=== PATIENT | male | born 1995 | race Caucasian/White ===

== ENCOUNTER 2020-02-12 16:20 | Emergency (ER) | payer OTHER, SELFPAY ==
[~2020-02-12 16:20] MED LIST: Iopamidol 370 76% 100 ML VIAL ONE
[2020-02-12 17:29] LABS: #Basophils 0.1 thou/uL (0.0-0.2); #Eosinphils 0.1 thou/uL (0.0-0.7); #Lymphocytes 1.6 thou/uL (1.20-3.40); #Neutrophils 6.9 thou/uL (1.40-6.50); %Basophils 1.4 % (0.0-1.0); %Eosinophils 1.3 % (0.0-10.0); %Lymphocytes 16.4 % (21.0-51.0); %Monocytes 10.1 % (0.0-10.0); %Neutrophils 70.8 % (42.0-75.0); Mean Corpuscular HGB CONC 32.9 g/dL (32.0-36.0); Mean Corpuscular Hemoglobin 29.8 pg (27.0-31.0); Mean Corpuscular Volume 90.5 fL (78.0-98.0); Mean Platelet Volume 8.5 fL (7.4-10.4); Platelet Count 248 thou/uL (130-400); RBC Distribution Width 11.6 % (11.5-14.5); White Blood Cell (WBC) Count 9.7 thou/uL (4.8-10.8)
[2020-02-12 17:45] LABS: ALT (SGPT) 20 U/L (8-55); AST (SGOT) 14 U/L (5-34); Albumin 4.8 g/dL (3.5-5.0); Alkaline Phosphatase 112 U/L (40-110); Anion Gap 16 mmol/L (10-20); BUN (Urea Nitrogen) 9 mg/dL (8.9-20.6); Bilirubin, Total 0.4 mg/dL (0.2-1.2); Calc. Creatinine Clearance 0 mL/min (70-130); Calcium 9.7 mg/dL (7.8-10.44); Carbon Dioxide 26 mmol/L (22-29); Chloride 101 mmol/L (98-107); Estimated GFR-MDRD Greater than 90; Globulin 2.7 g/dL (2.4-3.5); Glucose 79 mg/dL (70-105); Protein, Total 7.5 g/dL (6.0-8.3); Sodium 139 mmol/L (136-145)
--- NOTE | 2020-02-12 18:23 | CT ---
CT of theface: 02/12/2020 COMPARISON:None available HISTORY:Clinical concern for a soft tissue abscess, pain, soft tissue swelling of the face TECHNIQUE: Serial axial CT imaging at2.5 mm intervals from theaxial level of the cricoid cartilage th rough the axial level of the frontal sinuses with IV contrast. Coronal and sagittal reformatted imaging obtained Findings:The frontal sinuses, maxillary sinuses, ethmoid air cells, sphenoid sinuses, and partially i ubaldo mastoid air cells appear well-aerated. The nasal bones, zygomatic arches, and the pterygoid plates appear intact. Neither temporomandibular joint appears dislocated. There is no evidence for a mandibular fracture. T here are dental caries involving the posterior two left mandibular teeth. There is a prominent periapical abscess as evidenced by lucency at the root of the lateral right maxi llary incisor. There is anterior cortical discontinuity consistent with cortical breakthrough, best seen on axial image 30. There is prominent soft tissue swelling anterior to this with a small gingiva l based abscess measuring 1 cm in transverse dimension and 5 mm in AP dimension, best seen on axial image 31 sagittal image 41 and coronal image 21. There is extensive associated soft tissue swelling i nvolving the soft tissues anterior to the right maxillary sinus, the right maxilla, in the right mandible with subcutaneous fat stranding and skin thickening. Soft tissue swelling extends into the periorbital region on the right, especially medially. Vascular structures of the face and partially visualized neck appear patent. No acute osseous abnorma lity seen. IMPRESSION: Prominent periapical abscess involving the right maxillary lateral incisor with a gingiva l based abscess secondary to cortical breakthrough as detailed above. There is extensive associated soft tissue swelling, skin thickening, and fat stranding consistent with superimposed cellulitis on t he basis of an odontogenic infection.
[2020-02-12] MEDS ORDERED: Sodium Chloride 0.9% 250 ML 250 ML ONE (18:59)
[2020-02-12] MEDS ORDERED: Sodium Chloride 0.9% 2,000 ML ONE (18:59)
[2020-02-12] MEDS ORDERED: metroNIDAZOLE 500 MG/100 ML BAG ONE (18:59)
[2020-02-12] MEDS ORDERED: Dextrose 5 %-0.45 % NaCl 1,000 ML ONE (19:42)
[2020-02-12] MEDS ORDERED: Sodium Chloride 0.9% 250 ML 500 ML ONE (19:44)
[2020-02-12] MEDS ORDERED: Vancomycin HCl 750 MG VIAL ONE (19:44)
== END 2020-02-12 20:17 | disposition short-term general hospital (02) ==
LOC: MADERS 16:20
DX: K04.7 Periapical abscess without sinus (principal); K12.2 Cellulitis and abscess of mouth; F90.9 Attention-deficit hyperactivity disorder, unspecified type; R45.4 Irritability and anger
CPT/HCPCS: 70487; 80053; 83605; 85025; 87040; 96365; 96375; J3370; J7042; J7050; Q9967

== ENCOUNTER 2020-12-12 15:30 | Emergency (ER) | payer OTHER, SELFPAY ==
[2020-12-13 13:38] LABS: SARS-CoV-2 PCR by NAA Not Detected (NotDetected)
== END 2020-12-12 17:17 | disposition home or self-care (01) ==
LOC: MADERS 15:30
DX: B34.9 Viral infection, unspecified (principal); R06.02 Shortness of breath; R07.81 Pleurodynia; Z20.822 Contact with and (suspected) exposure to COVID-19; F17.220 Nicotine dependence, chewing tobacco, uncomplicated
CPT/HCPCS: 71046; 93005; U0003; U0005

== ENCOUNTER 2022-11-12 17:28 | Emergency (ER) | payer OTHER, SELFPAY ==
[2022-11-12] MEDS ORDERED: Ipratropium/Albuterol 3 ML NEB ONE (18:43)
[2022-11-12] MEDS ORDERED: Dexamethasone 4 MG TAB ONE (18:53)
[2022-11-12] MEDS ORDERED: predniSONE 10 MG TAB ONE (18:58)
== END 2022-11-12 19:02 | disposition home or self-care (01) ==
LOC: MADERS 17:28
DX: J45.901 Unspecified asthma with (acute) exacerbation (principal); F17.220 Nicotine dependence, chewing tobacco, uncomplicated
CPT/HCPCS: 71045; J7512; J7620; J8540

== ENCOUNTER 2023-05-07 14:04 | Emergency (ER) | payer SELFPAY ==
[2023-05-07 15:43] LABS: #Basophils 0.1 thou/uL (0.0-0.2); #Eosinphils 0.1 thou/uL (0.0-0.7); #Lymphocytes 1.7 thou/uL (1.20-3.40); #Monocytes 0.6 thou/uL (0.11-0.59); #Neutrophils 4.8 thou/uL (1.40-6.50); %Basophils 0.9 % (0.0-1.0); %Lymphocytes 22.9 % (21.0-51.0); %Monocytes 8.7 % (0.0-10.0); %Neutrophils 65.6 % (42.0-75.0); Hematocrit 47.7 % (42.0-52.0); Hemoglobin 15.9 g/dL (14.0-18.0); Mean Corpuscular HGB CONC 33.3 g/dL (32.0-36.0); Mean Corpuscular Hemoglobin 29.9 pg (27.0-31.0); Mean Corpuscular Volume 89.7 fl (78.0-98.0); Mean Platelet Volume 8.2 fL (7.4-10.4); Platelet Count 299 10x3/uL (130-400); RBC Distribution Width 11.6 % (11.5-14.5); Red Blood Cell (RBC) Count 5.32 mill/uL (4.70-6.10); White Blood Cell (WBC) Count 7.3 10x3/uL (4.8-10.8)
[2023-05-07] MEDS ORDERED: Ketorolac Tromethamine 30 MG (1 mL) VIAL ONE (15:43)
[2023-05-07] MEDS ORDERED: Ondansetron PF 4 MG/2 ML Vial ONE (15:43)
[2023-05-07] MEDS ORDERED: Lactated Ringer's 1,000 ML ONE (15:43)
[2023-05-07 15:50] LABS: INR-International Normal Ratio 0.9
[2023-05-07 15:51] LABS: PTT 28.3 sec (22.9-36.1)
[2023-05-07 15:58] LABS: ALT (SGPT) 42 U/L (8-55); AST (SGOT) 21 U/L (5-34); Albumin 4.8 g/dL (3.5-5.0); Alkaline Phosphatase 95 U/L (40-110); Anion Gap 16 mmol/L (10-20); BUN (Urea Nitrogen) 8 mg/dL (8.9-20.6); Bilirubin, Total 0.4 mg/dL (0.2-1.2); CK (CPK) 73 U/L (30-200); Calc. Creatinine Clearance 0 mL/min (70-130); Calcium 10.4 mg/dL (7.8-10.44); Carbon Dioxide 26 mmol/L (22-29); Chloride 101 mmol/L (98-107); Estimated GFR 132; Globulin 2.5 g/dL (2.4-3.5); Glucose 89 mg/dL (70-105); Protein, Total 7.3 g/dL (6.0-8.3); Sodium 139 mmol/L (136-145)
[2023-05-07 16:11] LABS: Lipase Less than 4 U/L (8-78)
[2023-05-07 16:24] LABS: SARS-CoV-2 NAA Rapid Test Not Detected (NotDetected)
== END 2023-05-07 16:46 | disposition home or self-care (01) ==
LOC: MADERS 14:04
DX: J06.9 Acute upper respiratory infection, unspecified (principal); J45.909 Unspecified asthma, uncomplicated; F17.210 Nicotine dependence, cigarettes, uncomplicated; R11.2 Nausea with vomiting, unspecified
CPT/HCPCS: 80053; 82550; 83605; 83690; 85025; 85610; 85730; 87040; 87081; 87430; 93005; 94760; 96361; 96374; 96375; J1885; J2405; J7120

== ENCOUNTER 2024-02-20 09:57 | Emergency (ER) | payer SELFPAY | END 2024-02-20 10:16 | disposition home or self-care (01) | LOC: MADERS 09:57 | DX: J06.9 Acute upper respiratory infection, unspecified (principal); Z55.6 Problems related to health literacy | CPT/HCPCS: 99283 ==

== ENCOUNTER 2024-12-16 18:35 | Emergency (ER) | payer SELFPAY ==
[2024-12-16] MEDS ORDERED: Ondansetron PF 4 MG/2 ML Vial ONE (18:44)
[2024-12-16] MEDS ORDERED: Ketorolac Tromethamine 30 MG (1 mL) VIAL ONE (18:44)
[2024-12-16 19:10] LABS: #Basophils 0.2 thou/uL (0.0-0.2); #Eosinophils 0.4 thou/uL (0.0-0.7); #Lymphocytes 3.9 thou/uL (1.20-3.40); #Monocytes 1.5 thou/uL (0.11-0.59); #Neutrophils 6.3 thou/uL (1.40-6.50); %Basophils 1.8 % (0.0-1.0); %Eosinophils 3.1 % (0.0-10.0); %Lymphocytes 31.8 % (21.0-51.0); %Monocytes 12.2 % (0.0-10.0); %Neutrophils 51.1 % (42.0-75.0); Hematocrit 47.0 % (42.0-52.0); Hemoglobin 16.1 g/dL (14.0-18.0); Mean Corpuscular Hemoglobin 30.1 pg (27.0-31.0); Mean Corpuscular Volume 87.9 fl (78.0-98.0); Platelet Count 376 10x3/uL (130-400); Red Blood Cell (RBC) Count 5.35 mill/uL (4.70-6.10); White Blood Cell (WBC) Count 12.4 10x3/uL (4.8-10.8)
[2024-12-16 19:22] LABS: ALT (SGPT) 50 U/L (Less than 45); AST (SGOT) 44 U/L (11-34); Albumin 4.9 g/dL (3.1-4.5); Alkaline Phosphatase 118 U/L (40-110); Anion Gap 18 mmol/L (10-20); BUN (Urea Nitrogen) 16 mg/dL (8.9-20.6); Bilirubin, Total 0.2 mg/dL (0.3-1.2); Calc. Creatinine Clearance 0 mL/min (70-130); Calcium 9.6 mg/dL (7.8-10.44); Carbon Dioxide 22 mmol/L (22-29); Chloride 106 mmol/L (98-107); Globulin 2.4 g/dL (2.4-3.5); Glucose 95 mg/dL (70-105); Potassium 3.9 mmol/L (3.5-5.1); Sodium 142 mmol/L (136-145)
[2024-12-16] MEDS ORDERED: CEFAZOLIN 2 GM VIAL ONE (19:26)
== END 2024-12-16 21:04 | disposition short-term general hospital (02) ==
LOC: MADERS 18:35
DX: S82.301B Unspecified fracture of lower end of right tibia, initial encounter for open fracture type I or II (principal); S82.831B Other fracture of upper and lower end of right fibula, initial encounter for open fracture type I or II; F17.210 Nicotine dependence, cigarettes, uncomplicated; V19.9XXA Pedal cyclist (driver) (passenger) injured in unspecified traffic accident, initial encounter
CPT/HCPCS: 29515; 71045; 80053; 85025; 93005; 96365; 96375; 96376; J1580; J1885; J7050